=== PATIENT | male | born 2000 ===

== ENCOUNTER 2023-09-04 21:59 | Emergency (ER) | payer SELFPAY ==
[2023-09-04] MEDS: MORPHINE SULFATE 4 MG/ML SYRINGE IVP STA (22:22)
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
[2023-09-04 22:30] LABS: Basophils % (A) 0 %; Eosinophils # (A) 0.2 k/uL (0-0.7); Eosinophils % (A) 2 %; HCT 47.5 % (39.0-53.0); HGB 15.8 gm/dL (13.0-17.5); Lymphocytes # (A) 1.6 k/uL (1.0-4.8); Lymphocytes % (A) 16 %; MCH 30.4 pg (25.0-35.0); MCHC 33.2 g/dL (31.0-37.0); MCV 91.5 fL (80.0-100.0); Mean Platelet Volume 8.3; Monocytes # (A) 0.5 k/uL (0-1.0); Monocytes % (A) 4 %; Neutrophils # (A) 8.2 k/uL (1.3-7.7); Neutrophils % (A) 77 %; Platelet Count 256 k/uL (150-450); RBC 5.19 m/uL (4.30-5.90); RDW 12.5 % (11.5-15.5); WBC 10.6 k/uL (3.8-10.6)
[2023-09-04 22:41] LABS: Prothrombin Time 11.1 sec (10.0-12.5)
[2023-09-04 22:42] LABS: ALT 48 U/L (4-49); AST 45 U/L (17-59); African American GFR (CKD) >90 (>60 ml/min/1.73 sqM); Alcohol <10 mg/dL; Alkaline Phosphatase 50 U/L (38-126); Anion Gap 9 mmol/L; Blood Urea Nitrogen 17 mg/dL (9-20); Calcium 9.9 mg/dL (8.4-10.2); Carbon Dioxide 23 mmol/L (22-30); Chloride 107 mmol/L (98-107); Creatine Kinase 291 U/L (55-170); Glucose 125 mg/dL (74-99); Non-African American GFR(CKD) >90 (>60 ml/min/1.73 sqM); Potassium 3.4 mmol/L (3.5-5.1); Sodium 139 mmol/L (137-145); Total Bilirubin 0.6 mg/dL (0.2-1.3); Total Protein 7.6 g/dL (6.3-8.2)
[2023-09-04] MEDS: ONDANSETRON 4 MG/2 ML VIAL IVP STA (22:51)
[2023-09-04] MEDS: ACETAMINOPHEN TAB 500 MG TAB PO STA (22:52)
[2023-09-04] MEDS: SODIUM CHLORIDE 0.9% 1,000 ML IV STA (22:53)
--- NOTE | 2023-09-04 23:19 | XR ---
EXAM: XR Chest, 1 View CLINICAL HISTORY: XR Reason: trauma TECHNIQUE: Frontal view of the chest. COMPARISON: No relevant prior studies available. FINDINGS: Lungs: Unremarkable. No consolidation. Pleural space: Unremarkable. No pneumothorax. Heart: Unremarkable. No cardiomegaly. Mediastinum: Unremarkable. Normal mediastinal contour. Bones/joints: Unremarkable. No acute fracture. IMPRESSION: Normal chest x-ray.
--- NOTE | 2023-09-04 23:20 | XR ---
EXAM: XR Pelvis, 1 or 2 Views CLINICAL HISTORY: XR Reason: Trauma TECHNIQUE: Frontal view of the pelvis. COMPARISON: No relevant prior studies available. FINDINGS: Bones/joints: Unremarkable. No acute fracture. No dislocation. Soft tissues: Unremarkable. IMPRESSION: Normal pelvis x-ray.
--- NOTE | 2023-09-04 23:25 | CT ---
EXAM: CT Head Without Intravenous Contrast CLINICAL HISTORY: CT Reason: trauma TECHNIQUE: Axial computed tomography images of the head/brain without intravenous contrast. CTDI is 45.2 mGy and DLP is 1098 mGy-cm. This CT exam was performed using one or more of the following dose reduction techniques: automated exposure control, adjustment of the mA and/or kV according to patient size, and/or use of iterative reconstruction technique. COMPARISON: No relevant prior studies available. FINDINGS: Brain: Unremarkable. No hemorrhage. No significant white matter disease. No edema. Ventricles: Unremarkable. No ventriculomegaly. Bones/joints: Unremarkable. No acute fracture. Soft tissues: Unremarkable. Sinuses: Gas fluid level of the left maxillary sinus with a cyst or mucosal thickening suggesting acute sinusitis. Mastoid air cells: Unremarkable as visualized. No mastoid effusion. IMPRESSION: 1. Gas fluid level of the left maxillary sinus with a cyst or mucosal thickening suggesting acute sinusitis. 2. Unremarkable appearance of the brain. No intracranial hemorrhage or infarct is identified. EXAM: CT Cervical Spine Without Intravenous Contrast CLINICAL HISTORY: CT Reason: trauma TECHNIQUE: Axial computed tomography images of the cervical spine without intravenous contrast. CTDI is 10.9 mGy and DLP is 308.5 mGy-cm. This CT exam was performed using one or more of the following dose reduction techniques: automated exposure control, adjustment of the mA and/or kV according to patient size, and/or use of iterative reconstruction technique. COMPARISON: No relevant prior studies available. FINDINGS: Vertebrae: Unremarkable. No acute fracture. Soft tissues: Unremarkable. DISCS/SPINAL CANAL/NEURAL FORAMINA: C2-C3: Unremarkable. No significant disc disease. No stenosis. C3-C4: Mild degenerative disc disease. No stenosis. C4-C5: Mild degenerative disc disease. No stenosis. C5-C6: Unremarkable. No significant disc disease. No stenosis. C6-C7: Unremarkable. No significant disc disease. No stenosis. C7-T1: Unremarkable. No significant disc disease. No stenosis. IMPRESSION: No acute fracture or subluxation is seen involving the cervical spine.
[2023-09-04] MEDS: POTASSIUM BICARBONATE/CIT AC 20 MEQ TABLET.EFF PO ONE (23:32)
--- NOTE | 2023-09-04 23:36 | CT ---
EXAM: CT Chest With Intravenous Contrast CLINICAL HISTORY: Trauma Reason: trauma TECHNIQUE: Axial computed tomography images of the chest with intravenous contrast. CTDI is 3 mGy and DLP is 241 mGy-cm. This CT exam was performed using one or more of the following dose reduction techniques: automated exposure control, adjustment of the mA and/or kV according to patient size, and/or use of iterative reconstruction technique. COMPARISON: No relevant prior studies available. FINDINGS: Lungs: Unremarkable. No mass. No consolidation. Pleural space: Unremarkable. No pneumothorax. No significant effusion. Heart: Unremarkable. No cardiomegaly. No significant pericardial effusion. No significant coronary artery calcifications. Bones/joints: There is anterior and inferior dislocation of the right shoulder. There appears to be a Hill-Sachs deformity involving the humeral head. No acute fracture. Soft tissues: Unremarkable. Vasculature: Unremarkable. No thoracic aortic aneurysm. Lymph nodes: Unremarkable. No enlarged lymph nodes. IMPRESSION: There is anterior and inferior dislocation of the right shoulder. There appears to be a Hill-Sachs deformity involving the humeral head. No other acute traumatic findings are seen involving the thorax. EXAM: CT Abdomen and Pelvis With Intravenous Contrast CLINICAL HISTORY: Trauma Reason: trauma TECHNIQUE: Axial computed tomography images of the abdomen and pelvis with intravenous contrast. CTDI is 8.7 mGy and DLP is 599.8 mGy-cm. This CT exam was performed using one or more of the following dose reduction techniques: automated exposure control, adjustment of the mA and/or kV according to patient size, and/or use of iterative reconstruction technique. COMPARISON: No relevant prior studies available. FINDINGS: Lung bases: Unremarkable. No mass. No consolidation. ABDOMEN: Liver: Unremarkable. No mass. Gallbladder and bile ducts: Unremarkable. No calcified stones. No ductal dilation. Pancreas: Unremarkable. No mass. No ductal dilation. Spleen: Unremarkable. No splenomegaly. Adrenals: Unremarkable. No mass. Kidneys and ureters: Unremarkable. No solid mass. No hydronephrosis. Stomach and bowel: Unremarkable. No obstruction. No mucosal thickening. PELVIS: Appendix: No findings to suggest acute appendicitis. Bladder: Unremarkable. No mass. Reproductive: Unremarkable as visualized. ABDOMEN and PELVIS: Intraperitoneal space: Unremarkable. No free air. No significant fluid collection. Bones/joints: No acute fracture. No dislocation. Soft tissues: Unremarkable. Vasculature: Unremarkable. No abdominal aortic aneurysm. Lymph nodes: Unremarkable. No enlarged lymph nodes. IMPRESSION: Normal abdomen and pelvis CT.
[2023-09-04] MEDS: MIDAZOLAM 2 MG/2 ML VIAL IV ONE (23:44)
[2023-09-05] MEDS: SODIUM CHLORIDE 0.9% 1,000 ML IV STA (00:23)
[2023-09-05] MEDS: PROPOFOL 10 MG/ML 20 ML VIAL IV STA (00:23)
[2023-09-05] MEDS: ONDANSETRON 4 MG/2 ML VIAL IVP STA (00:24)
[2023-09-05] MEDS: PROPOFOL 10 MG/ML 20 ML VIAL IV ONE (00:29)
[2023-09-05] MEDS ORDERED: fentaNYL (PF) 50 MCG/ML 2 ML AMP IVP STA (00:38)
--- NOTE | 2023-09-05 01:13 | XR ---
EXAM: XR Right Shoulder Complete, 2 or More Views CLINICAL HISTORY: XR Reason: Closed Reduction TECHNIQUE: Two or more views of the right shoulder. COMPARISON: CT scan from September 04, 2023. FINDINGS: Bones/joints: The proximal right humerus has been anatomically reduced with respect to the glenoid since previous. No dislocation. No acute fracture is seen. Soft tissues: Unremarkable. IMPRESSION: The proximal right humerus has been anatomically reduced with respect to the glenoid since previous.
[2023-09-05 01:48] VITALS: BP 121/84; RESP 18
[2023-09-05 02:02] VITALS: PULSE 94; TEMP 98.8
== END 2023-09-05 01:45 | disposition home or self-care (01) ==
LOC: EC 21:59
DX: S43.014A Anterior dislocation of right humerus, initial encounter (principal); S43.034A Inferior dislocation of right humerus, initial encounter; V28.49XA Other motorcycle driver injured in noncollision transport accident in traffic accident, initial encounter; Y92.410 Unspecified street and highway as the place of occurrence of the external cause; Y93.55 Activity, bike riding
CPT/HCPCS: 36415; 93005; 86900; 86901; 80053; 82550; 84484; 85025; 85610; 85730; 86850; 80320; 83874; 72170; 73020; 71045; 72125; 70450; 71260; 74177; 23650; 99152; 99284; 96374; 96375; 96376; 96361 ×2; J2250; J2270; J2405 ×2; J2704; Q9967